=== PATIENT | female | born 1980 | race Caucasian/White ===

== ENCOUNTER 2024-01-07 07:48 | Day surgery (SDC) | payer OTHER ==
[2024-01-04 15:19] VITALS: BMI 31.9
[2024-01-07 08:39] VITALS: TEMP 97
[2024-01-07 09:00] VITALS: RESP 16
[2024-01-07 09:02] VITALS: BP 121/76; PULSE 72
== END 2024-01-07 09:44 | disposition home or self-care (01) ==
LOC: FASU-ENDO 07:48
PROVIDERS: ATTEND Internal Medicine Gastroenterology
PROC: 0DJD8ZZ Inspection of Lower Intestinal Tract, Via Natural or Artificial Opening Endoscopic (ICD-10-PCS; principal; 2024-01-07 08:26)
DX: Z12.11 Encounter for screening for malignant neoplasm of colon (principal); K57.30 Diverticulosis of large intestine without perforation or abscess without bleeding
CPT/HCPCS: 81025

== ENCOUNTER 2024-09-12 05:23 | Day surgery (SDC) | payer OTHER ==
[2024-09-09 09:50] VITALS: BMI 31.4
[2024-09-12] MEDS ORDERED: PROPOFOL 20 ML ONE (10:02)
[2024-09-12] MEDS ORDERED: MIDAZOLAM HCL 2 MG/2 ML SINGLE DOSE VIAL ONE (10:03)
[2024-09-12] MEDS ORDERED: ROCURONIUM BROMIDE 50 MG/5 ML SYRINGE ONE ×2 (10:03→12:38)
[2024-09-12] MEDS ORDERED: ONDANSETRON 4 MG/2 ML VIAL ONE ×3 (10:14→13:00)
[2024-09-12] MEDS ORDERED: KETOROLAC TROMETHAMINE 30 MG/1 ML VIAL ONE (10:14)
[2024-09-12] MEDS ORDERED: NEOSTIGMINE METHYLSULFATE 0.5 MG/1 ML - 10 ML MDV ONE (10:16)
[2024-09-12] MEDS ORDERED: GLYCOPYRROLATE 0.2 MG/1 ML VIAL ONE (10:16)
[2024-09-12] MEDS ORDERED: HEPARIN NA (PORCINE) 5,000 UNITS/ML 1ML VIAL ONE (11:13)
[2024-09-12] MEDS ORDERED: INDOCYANINE GREEN 25 MG/10 ML VIAL IVPUSH ONE (11:13)
[2024-09-12] MEDS ORDERED: cefOXitin SODIUM 2 GM VIAL (RESTRICTED TO ID) IVPB ONE (12:18)
[2024-09-12] MEDS ORDERED: DEXAMETHASONE SOD PHOSPHATE 4 MG/1 ML VIAL ONE (12:20)
[2024-09-12] MEDS ORDERED: HYDROmorphone HCl 2 MG/ML VIAL ONE (12:23)
[2024-09-12] MEDS: ceFAZolin SODIUM 1 GM VIAL IVPB ONE ×2 (12:30)
[2024-09-12] MEDS: cefOXitin SODIUM 2 GM VIAL (RESTRICTED TO ID) IVPB ONE (12:30)
[2024-09-12] MEDS: BUPIVACAINE HCL/PF 0.25% (2.5MG/ML) 10 ML VIAL IJ ONE ×2 (12:40)
[2024-09-12] MEDS ORDERED: ACETAMINOPHEN INJECTION 100 ML ONE (12:46)
[2024-09-12] MEDS: ONDANSETRON 4 MG/2 ML VIAL IVPUSH PRN (14:08)
[2024-09-12] MEDS ORDERED: oxyCODONE HCL 5 MG TABLET PO PRN (14:10)
[2024-09-12] MEDS ORDERED: LACTATED RINGERS SOLUTION 1,000 ML IV SCH (14:15)
[2024-09-12] MEDS ORDERED: PROMETHAZINE HCL 25 MG/1 ML VIAL ONE (14:22)
[2024-09-12] MEDS: PROMETHAZINE HCL 25 MG/1 ML VIAL IVPB PRN (14:28)
[2024-09-12 16:41] VITALS: RESP 18
[2024-09-12 17:24] VITALS: BP 129/74; PULSE 75; TEMP 97.3
== END 2024-09-12 17:25 | disposition home or self-care (01) ==
LOC: JASU-SURG 05:23
PROVIDERS: ATTEND Surgery
PROC: 0FT44ZZ Resection of Gallbladder, Percutaneous Endoscopic Approach (ICD-10-PCS; principal; 2024-09-12 10:30)
DX: K81.1 Chronic cholecystitis (principal)
CPT/HCPCS: 47562; S2900; 81025; 86850; 86900; 86901; 88304-TC; 94760